=== PATIENT | female | born 1965 | race Caucasian/White ===

== ENCOUNTER 2016-10-15 09:26 | Emergency (ER) | payer OTHER ==
--- NOTE | 2016-10-15 09:31 | EDPHY ---
H & P Time Seen by Provider: 10/15/16 09:30 Constitutional: Initial Vital Signs Temperature (C) 36.6 C 10/15/16 09:37 Heart Rate 81 10/15/16 09:37 Respiratory Rate 16 10/15/16 09:37 Blood Pressure 120/49 L 10/15/16 09:37 O2 Sat (%) 100 10/15/16 09:37 O2 Delivery Mode Room Air Allergies/Adverse Reactions: No Known Allergies Allergy (Unverified 10/15/16 09:40) Home Medications: Medication Instructions Recorded NK [No Known Home Meds] 10/15/16 Medical Decision Making - Diagnostics Imaging Results: Imaging Impressions Abdomen/Pelvis Ultrasound 10/15/16 09:44 Impression: Normal renal ultrasound. Findings discussed with Eneida Howe MD 10/15/2016 at 11 :36. Pelvic/Renal Ultrasound 10/15/16 09:44 Impression: 1. No acute findings in the pelvis 2. Complex right ovarian cyst most likely representing a benign hemorrhagic cyst. Follow-up ultrasound is recommended in 6 weeks. Findings discussed with Eneida Howe MD 10/15/2016 at 11 :36. Imaging: Discussed imaging studies w/ teacher physically impaired Radiologist ED Course/Re-evaluation: CHIEF COMPLAINT: Abdominal pain, syncope HISTORY OF PRESENT ILLNESS: The patient is a 50 y/o female arriving via EMS complaining of abdominal pain with a syncopal episode this morning. She had acute, sharp, intense pain "in my right ovary," that self-resolved after a few minutes. With pain onset, she developed sudden dizziness and sat down. According to her coworker, she then lost consciousness for about 30 seconds. After lying down for a few minutes she felt a bit better. She has felt a milder version of this right-sided abdominal pain over the last few weeks. She had a prior syncope in May while standing in line at a restaurant in [facility]. During that episode she became lightheaded and before she could sit down she passed out; in the following days she developed a viral illness. She denies any urinary or vaginal symptoms. She has no prior history of kidney stones or UTIs. Her only abdominal surgery is a hysterectomy. She is currently asymptomatic upon assessment. REVIEW OF SYSTEMS: A 10 point review of systems was performed and is negative with the exception of the elements mentioned in the history of present illness. PHYSICAL EXAM: HR, BP, O2 Sat, RR. Temp noted General Appearance: Alert, well hydrated, appropriate, and non-toxic appearing. Head: Atraumatic without scalp tenderness or obvious injury Eyes: Pupils equal, round, reactive to light and accommodation, EOMI, no trauma , no injection. Nose: Atraumatic, no rhinorrhea, clear. Throat: There is no erythema or exudates, no lesions, normal tonsils, mucus membranes moist. Neck: Supple, nontender, no lymphadenopathy. Respiratory: No retractions, no distress, no wheezes, and no accessory muscle use. Lungs are clear to auscultation bilaterally. Cardiovascular: Regular rate and rhythm, no murmurs, rubs, or gallops. Good capillary refill all extremities. Gastrointestinal: Abdomen is soft, nontender, non-distended, no masses, no rebound, no guarding, no peritoneal signs. Musculoskeletal: Normal active ROM of all extremities, atraumatic. Neurological: Alert, appropriate, and interactive. Nonfocal neuro exam. Skin: No rashes, good turgor, no nodules on palpation. Past medical history: Denies Past surgical history: hysterectomy without oophorectomy Family history: noncontributory Social history: Lives in [place] DIAGNOSTICS/PROCEDURES/CRITICAL CARE TIME: The 12 lead EKG was interpreted by myself. Sinus rhythm. See hard copy and/or "tracemaster" electronic copy for interpretation. Kidney and Pelvic US: benign right hemorrhagic ovarian cyst, 6 week follow up. DIFFERENTIAL DIAGNOSIS: The differential diagnosis for the patient's abdominal pain included but was not limited to ovarian cyst, pelvic inflammatory disease, ovarian torsion, urinary tract infection, ectopic , cholecystitis, and appendicitis. MEDICAL DECISION MAKING: This is a well-appearing 50 y/o female who presents asymptomatic after a syncope associated with RLQ pain this morning. She had preceding symptoms for her syncope, which is indicative of a vasovagal episode. Abdomen is benign. Afebrile. Plan for IV, labs, UA, EKG, and kidney and pelvic US. Declines pain medication at this time. Work up largely unremarkable. US showed benign right ovarian cyst that will require 6-week follow up. Reassessed patient and discussed work up. Abdomen remains benign. She will be discharged with standard syncope and ovarian cyst instructions and return precautions. She is comfortable with this plan. - Data Points Laboratory Results: Laboratory Results 10/15/16 09:45 10/15/16 09:45 10/15/16 10/15/16 10/15/16 09:45 09:45 09:45 WBC RBC Hgb Hct MCV MCH MCHC RDW Plt Count MPV Neut % (Auto) Lymph % (Auto) [place] % (Auto) Eos % (Auto) Baso % (Auto) Nucleat RBC Rel Count Absolute Neuts (auto) Absolute Lymphs (auto) Absolute Monos (auto) Absolute Eos (auto) Absolute Basos (auto) Absolute Nucleated RBC Immature Gran % Immature Gran # Sodium 141 mEq/L mEq/L (134-144) Potassium 3.4 mEq/L L mEq/L (3.5-5.2) Chloride 105 mEq/L mEq/L (97-110) Carbon Dioxide 25 mEq/l mEq/l (22-31) Anion Gap 11 mEq/L mEq/L (8-16) BUN 16 mg/dL mg/dL (7-23) Creatinine 0.9 mg/dL mg/dL (0.6-1.0) Estimated GFR > 60 Glucose 68 mg/dL L mg/dL (70-100) Calcium 9.7 mg/dL mg/dL (8.5-10.4) Troponin I < 0.012 ng/mL ng/mL (0-0.034) Beta HCG, Qual NEGATIVE Urine Color YELLOW Urine Appearance CLEAR Urine pH 8.0 H (5.0-7.5) Ur Specific [place] 1.004 (1.002-1.030) Urine Protein NEGATIVE (NEGATIVE) Urine Ketones NEGATIVE (NEGATIVE) Urine Blood NEGATIVE (NEGATIVE) Urine Nitrate NEGATIVE (NEGATIVE) Urine Bilirubin NEGATIVE (NEGATIVE) Urine Urobilinogen NEGATIVE EU EU (0.2-1.0) Ur Leukocyte Esterase NEGATIVE (NEGATIVE) Urine RBC 1-3 /hpf /hpf (0-3) Urine WBC 1-3 /hpf /hpf (0-3) Ur Epithelial Cells TRACE /lpf /lpf (NONE-1+) Urine Bacteria TRACE /hpf H /hpf (NONE SEEN) Urine Mucus TRACE /lpf /lpf (NONE-1+) Urine Glucose NEGATIVE (NEGATIVE) 10/15/16 09:45 WBC 7.46 10^3/uL 10^3/uL (3.80-9.50) RBC 4.64 10^6/uL 10^6/uL (4.18-5.33) Hgb 14.2 g/dL g/dL (12.6-16.3) Hct 43.0 % % (38.0-47.0) MCV 92.7 fL fL (81.5-99.8) MCH 30.6 pg pg (27.9-34.1) MCHC 33.0 g/dL g/dL (32.4-36.7) RDW 13.2 % % (11.5-15.2) Plt Count 303 10^3/uL 10^3/uL (150-400) MPV 9.8 fL fL (8.7-11.7) Neut % (Auto) 56.3 % % (39.3-74.2) Lymph % (Auto) 31.4 % % (15.0-45.0) [place] % (Auto) 8.8 % % (4.5-13.0) Eos % (Auto) 1.9 % % (0.6-7.6) Baso % (Auto) 1.3 % % (0.3-1.7) Nucleat RBC Rel Count 0.0 % % (0.0-0.2) Absolute Neuts (auto) 4.20 10^3/uL 10^3/uL (1.70-6.50) Absolute Lymphs (auto) 2.34 10^3/uL 10^3/uL (1.00-3.00) Absolute Monos (auto) 0.66 10^3/uL 10^3/uL (0.30-0.80) Absolute Eos (auto) 0.14 10^3/uL 10^3/uL (0.03-0.40) Absolute Basos (auto) 0.10 10^3/uL 10^3/uL (0.02-0.10) Absolute Nucleated RBC 0.00 10^3/uL 10^3/uL (0-0.01) Immature Gran % 0.3 % % (0.0-1.1) Immature Gran # 0.02 10^3/uL 10^3/uL (0.00-0.10) Sodium Potassium Chloride Carbon Dioxide Anion Gap BUN Creatinine Estimated GFR Glucose Calcium Troponin I Beta HCG, Qual Urine Color Urine Appearance Urine pH Ur Specific [place] Urine Protein Urine Ketones Urine Blood Urine Nitrate Urine Bilirubin Urine Urobilinogen Ur Leukocyte Esterase Urine RBC Urine WBC Ur Epithelial Cells Urine Bacteria Urine Mucus Urine Glucose Departure - Departure Disposition: Home, Routine, Self-Care Clinical Impression: Ovarian cyst, right, Vasovagal syncope Condition: Good Instructions: Ovarian Cyst (ED), Syncope (ED) Additional Instructions: Follow up with your OBGYN or Dr. Snyder in the next month. You will require a follow up ultrasound in the next 6 weeks to further evaluate your ovarian cyst. Use ibuprofen or Tylenol as directed on the packaging as needed for pain for the next few days. Return to the ED for any worsening of condition including fever, severe pain, or recurrent fainting. Referrals: Patient,NotPresent [Unknown] - As per Instructions Jud Snyder DO [Doctor of Osteopathy] - As per Instructions Report Scribed for: Rufus Howe Report Scribed by: Eneida De Date of Report: 10/15/16 Time of Report: 09:31
--- NOTE | 2016-10-15 09:38 | CPEKG ---
Heart Rate: 68 RR Interval: 882 P-R Interval: 140 QRSD Interval: 110 QT Interval: 440 QTC Interval: 469 P Mcdonald: 76 QRS Mcdonald: 63 T Wave Mcdonald: 41 EKG Severity - ABNORMAL ECG - EKG Impression: SINUS RHYTHM EKG Impression: NONSPECIFIC INTRAVENTRICULAR CONDUCTION DELAY Electronically Signed By: Rufus Howe 15-Oct-2016 14:57:55
[2016-10-15 09:40] VITALS: RESP 16
[2016-10-15 10:04] LABS: % IMMATURE GRANULYOCYTES 0.3 % (0.0-1.1); ABSOLUTE IMMATURE GRANULOCYTES 0.02 10^3/uL (0.00-0.10); ADD DIFF? NO; ADD MORPH? NO; ADD SCAN? NO; ATYPICAL LYMPHOCYTE FLAG 10 (0-99); FRAGMENT RBC FLAG 0 (0-99); HEMOGLOBIN 14.2 g/dL (12.6-16.3); LEFT SHIFT FLG 0 (0-99); LIPEMIA HEMOLYSIS FLAG 80 (0-99); MEAN CELL HEMOGLOBIN 30.6 pg (27.9-34.1); MEAN CELL VOLUME 92.7 fL (81.5-99.8); MEAN PLATELET VOLUME 9.8 fL (8.7-11.7); PLATELET CLUMPS FLAG 0 (0-99); PLATELET COUNT 303 10^3/uL (150-400); RED BLOOD CELL COUNT 4.64 10^6/uL (4.18-5.33); RED CELL DISTRIBUTION WIDTH 13.2 % (11.5-15.2)
[2016-10-15 10:14] LABS: COLOR YELLOW; LEUKOCYTE ESTERASE,URINE NEGATIVE (NEGATIVE); NITRITE,URINE NEGATIVE (NEGATIVE)
[2016-10-15 10:15] LABS: BACTERIA TRACE /hpf (NONE SEEN); MUCUS TRACE /lpf (NONE-1+)
[2016-10-15 10:17] LABS: ANION GAP 11 mEq/L (8-16); CALCIUM 9.7 mg/dL (8.5-10.4); CARBON DIOXIDE 25 mEq/l (22-31); CHLORIDE 105 mEq/L (97-110); CREATININE 0.9 mg/dL (0.6-1.0); GLOMERULAR FILTRATION RATE > 60; GLUCOSE 68 mg/dL (70-100); POTASSIUM 3.4 mEq/L (3.5-5.2); SODIUM 141 mEq/L (134-144)
[2016-10-15 10:28] LABS: TROPONIN I < 0.012 ng/mL (0-0.034)
[2016-10-15 12:26] VITALS: BP 93/66; PULSE 62; TEMP 97; O2SAT 98
== END 2016-10-15 12:29 | disposition home or self-care (01) ==
DX: N83.201 Unspecified ovarian cyst, right side (principal); R55 Syncope and collapse